=== PATIENT | male | born 1950 | race African-American/Black ===

== ENCOUNTER 2018-02-27 15:01 | Emergency (ER) | payer SELFPAY ==
[~2018-02-27] VITALS: Ht 172.7 cm; Wt 97.0 kg
[2018-02-27 15:04] VITALS: BP 142/90
[2018-02-27] MEDS ORDERED: BACITRACIN ZINC OINT UDPKT TOP ONE (15:15)
[2018-02-27] MEDS ORDERED: TETANUS, DIPHTHERIA, PERTUSSIS VAC/PF 0.5ML (>7YR OLD) IM ONE (15:15)
== END 2018-02-27 15:47 | disposition left against medical advice (07) ==
LOC: ER 15:01
DX: S50.311A Abrasion of right elbow, initial encounter (principal); V19.88XA Pedal cyclist (driver) (passenger) injured in other specified transport accidents, initial encounter; Y93.89 Activity, other specified; Y92.89 Other specified places as the place of occurrence of the external cause; Y99.8 Other external cause status
CPT/HCPCS: 99283